=== PATIENT | female | born 1980 | race Hispanic/Latino ===

== ENCOUNTER 2018-08-22 13:19 | Emergency (ER) | payer OTHER ==
[2018-08-22 13:38] VITALS: BMI 25.7
[2018-08-22] MEDS ORDERED: Sodium Chloride 0.9% 1,000 ML IV ONE ×2 (14:28→14:53)
[2018-08-22 14:35] LABS: HEMOGLOBIN 13.4 g/dL (11.0-16.0); MEAN CELL VOLUME 88.8 fL (81.0-99.0); MEAN CORPUSCULAR HEMOGLOBIN 30.9 pg (27.0-31.0); MEAN CORPUSCULAR HGB CONC 34.8 g/dL (33.0-37.0); MEAN PLATELET VOLUME 7.9 fL (7.2-11.7); RBC 4.33 Mil/uL (3.80-5.20); RED CELL DISTRIBUTION WIDTH 14.2 % (11.5-14.5); WHITE BLOOD COUNT 7.2 K/uL (4.8-10.8)
[2018-08-22] MEDS ORDERED: Sodium Chloride 0.9% 1,000 ML ONE ×2 (14:39→15:03)
[2018-08-22 14:50] LABS: ALB/GLOB RATIO 1.3 (1.0-2.1); ALBUMIN 4.1 g/dL (3.5-5.0); ALT/SGPT 24 U/L (9-52); AST/SGOT 16 U/L (14-36); BLOOD UREA NITROGEN 9 mg/dL (7-17); GFR NON-AFRICAN AMERICAN > 60
--- NOTE | 2018-08-22 15:39 | C.PDOC ---
Time Seen by Provider: 08/22/18 14:04 Chief Complaint (Nursing): Abdominal Pain Past Medical History Vital Signs: Last Vital Signs Temp 98.6 F 08/22/18 13:38 Pulse 68 08/22/18 13:38 Resp 18 08/22/18 13:38 BP 170/91 H 08/22/18 13:38 Pulse Ox 99 08/22/18 13:38 - Medical History PMH: HTN Surgical History: Cholecystectomy - Social History Hx Alcohol Use: No Hx Substance Use: No - Immunization History Hx Tetanus Toxoid Vaccination: No Hx Influenza Vaccination: No Hx Pneumococcal Vaccination: No ED Course And Treatment - Laboratory Results Result Diagrams: 08/22/18 14:29 08/22/18 14:29 O2 Sat by Pulse Oximetry: 99 Disposition - Disposition Forms: [facility] (Slovak)
--- NOTE | 2018-08-22 15:39 | C.PDOC ---
History Of Present Illness 38 year old female, whose past medical history includes severe gastroparesis, presents to the ED for evaluation of frequent falls. Patient states she has been experiencing frequent falls over the past few days, and suspects it may be related to hypokalemia. Patient also repor/ts vomiting and abdominal pain, which she regularly experiences. Patient states her LMP was last week. She denies fever, chills, cough, chest pain, shortness of breath, recent travel. Time Seen by Provider: 08/22/18 14:04 Chief Complaint (Nursing): Abdominal Pain History Per: Patient History/Exam Limitations: no limitations Onset/Duration Of Symptoms: Days Current Symptoms Are (Timing): Still Present Past Medical History Reviewed: Historical Data, Nursing Documentation, Vital Signs Vital Signs: Last Vital Signs Temp 98.6 F 08/22/18 13:38 Pulse 68 08/22/18 13:38 Resp 18 08/22/18 13:38 BP 170/91 H 08/22/18 13:38 Pulse Ox 99 08/22/18 13:38 - Medical History PMH: HTN Surgical History: Cholecystectomy Family History: States: Unknown Family Hx - Social History Hx Alcohol Use: No Hx Substance Use: No - Immunization History Hx Tetanus Toxoid Vaccination: No Hx Influenza Vaccination: No Hx Pneumococcal Vaccination: No Review Of Systems Constitutional: Negative for: Fever, Chills Cardiovascular: Negative for: Chest Pain Respiratory: Negative for: Shortness of Breath Physical Exam - Physical Exam Appears: Non-toxic, No Acute Distress Skin: Normal Color, Warm, Dry Head: Atraumatic, Normacephalic Eye(s): bilateral: Normal Inspection Oral Mucosa: Moist Neck: Supple Chest: Symmetrical, No Deformity, No Tenderness Cardiovascular: Rhythm Regular, No Murmur Respiratory: Normal Breath Sounds, No Rales, No Rhonchi, No Wheezing Gastrointestinal/Abdominal: Soft, No Tenderness, No Guarding, No Rebound Extremity: Normal ROM, Capillary Refill (less than 2 seconds ) Neurological/Psych: Oriented x3, Normal Speech, Normal Cognition ED Course And Treatment - Laboratory Results Result Diagrams: 08/22/18 14:29 08/22/18 14:29 O2 Sat by Pulse Oximetry: 99 (on RA) Pulse Ox Interpretation: Normal Medical Decision Making Medical Decision Making: Plan: * bloodwork * IV Fluids, two liters * reassess and disposition Progress: Bloodwork ordered and reviewed. Patient's labwork is unremarkable Patient had already received one liter of IV flluids prior to my evaluation, and states her symptoms have started to improve. After receiving two liters of fluids, patient is resting comfortably, showing no signs of distress and reports an improvement in her symptoms. Patient states she regularly follows up with a video editing intern. She is advised to follow up within 1-2 days for further evaluation. Advised to return to the ED if symptoms persist or worsen. Disposition Counseled Patient/Family Regarding: Studies Performed, Diagnosis, Need For Followup - Disposition Disposition: HOME/ ROUTINE Disposition Time: 15:35 Condition: STABLE Instructions: Nausea and Vomiting, Adult (DC), Gastroparesis (Delayed Gastric Emptying) (DC) Forms: General Discharge Instructions, [facility] (Indian), Work Excuse - POA Present On Arrival: None - Clinical Impression Clinical Impression: Abdominal pain, Vomiting, Gastroparesis - Scribe Statement The provider has reviewed the documentation as recorded by the Scribe (Mariana Reynoso) Provider Attestation: All medical record entries made by the Scribe were at my direction and perso diya dictated by me. I have reviewed the chart and agree that the record accurately reflects my personal performance of the history, physical exam, medical decision making, and the department course for this patient. I have also personally directed, reviewed, and agree with the discharge instructions and disposition.
[2018-08-22 15:47] VITALS: BP 131/84; PULSE 57; RESP 16; TEMP 97.7
[2018-08-22 15:50] VITALS: O2SAT 99
== END 2018-08-22 15:46 | disposition home or self-care (01) ==
LOC: C.ER 13:19
DX: K31.84 Gastroparesis (principal); R11.10 Vomiting, unspecified; R10.9 Unspecified abdominal pain
CPT/HCPCS: 80053; 85027; 96360; 99284; J7030

== ENCOUNTER 2018-11-04 16:07 | Emergency (ER) | payer OTHER ==
[2018-11-04 16:08] VITALS: BMI 25.7
[2018-11-04 17:59] LABS: BASO # 0.1 K/uL (0.0-0.2); BASO % 0.7 % (0.0-2.0); EOS # 0.1 K/uL (0.0-0.7); EOS % 0.9 % (0.0-4.0); HEMOGLOBIN 14.4 g/dL (11.0-16.0); LYMPH # 2.9 K/uL (1.0-4.3); LYMPH % 38.2 % (20.0-40.0); MEAN CELL VOLUME 90.8 fL (81.0-99.0); MEAN CORPUSCULAR HEMOGLOBIN 31.2 pg (27.0-31.0); MEAN CORPUSCULAR HGB CONC 34.3 g/dL (33.0-37.0); MEAN PLATELET VOLUME 8.7 fL (7.2-11.7); MONO # 0.5 K/uL (0.0-0.8); NEUT # 4.1 K/uL (1.8-7.0); NEUT % 54.2 % (50.0-75.0); NRBC % 0.1 % (0.0-2.0); RBC 4.62 Mil/uL (3.80-5.20); RED CELL DISTRIBUTION WIDTH 13.4 % (11.5-14.5); WHITE BLOOD COUNT 7.5 K/uL (4.8-10.8)
[2018-11-04 18:14] LABS: ALB/GLOB RATIO 1.4 (1.0-2.1); ALBUMIN 4.5 g/dL (3.5-5.0); ALT/SGPT 21 U/L (9-52); AMYLASE 116 U/L (30-110); AST/SGOT 21 U/L (14-36); BLOOD UREA NITROGEN 11 mg/dL (7-17); CALCIUM 9.1 mg/dl (8.6-10.4); GFR NON-AFRICAN AMERICAN > 60; LIPASE 87 U/L (23-300)
[2018-11-04 18:20] LABS: HCG,QUALITATIVE URINE NEGATIVE (NEGATIVE)
[2018-11-04 18:34] LABS: SQUAMOUS EPITHIAL 14 /hpf (0-5); URINE BACTERIA RARE (<OCC); URINE BILIRUBIN NEGATIVE (NEGATIVE); URINE BLOOD NEGATIVE (NEGATIVE); URINE CLARITY Hazy (Clear); URINE COLOR Yellow (YELLOW); URINE GLUCOSE (UA) NORMAL (Normal); URINE LEUKOCYTE ESTERASE TRACE Leu/uL (Negative); URINE PROTEIN NEGATIVE (NEGATIVE); URINE UROBILINOGEN NORMAL mg/dL (0.2-1.0)
[2018-11-04] MEDS ORDERED: Sodium Chloride 0.9% 1,000 ML IV ONE (18:34)
[2018-11-04] MEDS ORDERED: Sodium Chloride 0.9% 1,000 ML ONE (18:48)
--- NOTE | 2018-11-04 18:55 | C.PDOC ---
History Of Present Illness Patient is a 38 year old female, with a PMHx of gastroparesis, who presents to the ED c/o increased nausea, vomiting, and diarrhea. Patient states that she feels dehydrated, has gastric reflux, and has a frontal headache after she vo mits. She states that she normally experiences nausea and vomiting, which is controlled by her medications. Patient states that 2 weeks ago, her PMD prescribed her doxycycline for lyme disease, which has increased her nausea, vomiting, and diarrhea. Last time she vomited was 4pm today and experienced diarrhea 2 days ago. Her LMP was one week ago and has an allergy to morphine. Patient denies CP, SOB, dizziness, syncopy, fever, cough, chills, or urinary symptoms. Time Seen by Provider: 11/04/18 18:08 Chief Complaint (Nursing): Abdominal Pain History Per: Patient History/Exam Limitations: no limitations Current Symptoms Are (Timing): Still Present Associated Symptoms: Nausea, Vomiting, Diarrhea. denies: Fever, Chills, Urinary Symptoms, Other (CP, SOB, syncopy, dizziness, cough) Recent travel outside of the [place]: No Additional History Per: Patient Past Medical History Reviewed: Historical Data, Nursing Documentation, Vital Signs Vital Signs: Last Vital Signs Temp 97.3 F L 11/04/18 16:12 Pulse 55 L 11/04/18 16:12 Resp 20 11/04/18 16:12 BP 152/97 H 11/04/18 16:12 Pulse Ox 96 11/04/18 16:12 - Medical History PMH: HTN Surgical History: Cholecystectomy Family History: States: Unknown Family Hx - Social History Hx Alcohol Use: No Hx Substance Use: No - Immunization History Hx Tetanus Toxoid Vaccination: No Hx Influenza Vaccination: No Hx Pneumococcal Vaccination: No Review Of Systems Review Of Systems: ROS cannot be obtained secondary to pt's inabilty to answer questions. Constitutional: Negative for: Fever, Chills, Other (syncopy) Cardiovascular: Negative for: Chest Pain Respiratory: Negative for: Cough, Shortness of Breath Gastrointestinal: Positive for: Nausea, Vomiting, Diarrhea Genitourinary: Negative for: Dysuria, Frequency, Hematuria Neurological: Positive for: Headache (frontal). Negative for: Dizziness Physical Exam - Physical Exam Appears: Non-toxic, No Acute Distress Skin: Normal Color, Warm, Dry Head: Atraumatic, Normacephalic Oral Mucosa: Dry Neck: Normal ROM, Supple Chest: Symmetrical, No Deformity Cardiovascular: Rhythm Regular, No Murmur Respiratory: Normal Breath Sounds, No Rales, No Rhonchi, No Wheezing Gastrointestinal/Abdominal: Soft, No Tenderness, No Guarding, No Rebound Extremity: Normal ROM Neurological/Psych: Oriented x3, Normal Speech, Normal Cognition ED Course And Treatment - Laboratory Results Result Diagrams: 11/04/18 17:54 11/04/18 17:54 Lab Results: Total Bilirubin 0.5 mg/dL (0.2-1.3) 11/04/18 17:54 AST 21 U/L (14-36) 11/04/18 17:54 ALT 21 U/L (9-52) 11/04/18 17:54 Alkaline Phosphatase 96 U/L (38-126) 11/04/18 17:54 Total Protein 7.6 g/dL (6.3-8.3) 11/04/18 17:54 Albumin 4.5 g/dL (3.5-5.0) 11/04/18 17:54 Globulin 3.1 gm/dL (2.2-3.9) 11/04/18 17:54 Albumin/Globulin Ratio 1.4 (1.0-2.1) 11/04/18 17:54 Amylase 116 U/L (30-110) H 11/04/18 17:54 Lipase 87 U/L (23-300) 11/04/18 17:54 Urine Color Yellow (YELLOW) 11/04/18 17:54 Urine Clarity Hazy (Clear) 11/04/18 17:54 Urine pH 6.0 (5.0-8.0) 11/04/18 17:54 Ur Specific [place] 1.015 (1.003-1.030) 11/04/18 17:54 Urine Protein Negative mg/dL (NEGATIVE) 11/04/18 17:54 Urine Glucose (UA) Normal mg/dL (Normal) 11/04/18 17:54 Urine Ketones Negative mg/dL (NEGATIVE) 11/04/18 17:54 Urine Blood Negative (NEGATIVE) 11/04/18 17:54 Urine Nitrate Negative (NEGATIVE) 11/04/18 17:54 Urine Bilirubin Negative (NEGATIVE) 11/04/18 17:54 Urine Urobilinogen Normal mg/dL (0.2-1.0) 11/04/18 17:54 Ur Leukocyte Esterase Trace Yamil/uL (Negative) 11/04/18 17:54 Urine WBC (Auto) 2 /hpf (0-5) 11/04/18 17:54 Urine RBC (Auto) 1 /hpf (0-3) 11/04/18 17:54 Ur Squamous Epith Cells 14 /hpf (0-5) H 11/04/18 17:54 Urine Bacteria Rare (<OCC) 11/04/18 17:54 Urine HCG, Qual Negative (NEGATIVE) 11/04/18 17:54 Urine HCG, Qual Negative (NEGATIVE) 11/04/18 17:54 O2 Sat by Pulse Oximetry: 96 (on RA) Pulse Ox Interpretation: Normal Medical Decision Making Medical Decision Making: Plan: Bloodwork, Urinalysis ordered and reviewed. Pepcid 20mg IVP, Tylenol 975mg PO, Zofran 4mg IVP, and IV FLuids administered. 20:10 On Reassessment, patient feels better after IV Fluids and states that she wants to go home. Disposition Counseled Patient/Family Regarding: Studies Performed, Diagnosis, Need For Followup - Disposition Disposition: HOME/ ROUTINE Disposition Time: 20:18 Condition: IMPROVED Additional Instructions: BROOKE ARRIAGA, thank you for letting us take care of you today. Your provider was Yajaira Pandey MD and you were treated for STOMACH PAINS. The emergency medical care you received today was directed at your acute symptoms. If you were prescribed any medication, please fill it and take as directed. It may take several days for your symptoms to resolve. Return to the Emergency Department if your symptoms worsen, do not improve, or if you have any other problems. Please contact your doctor in 1-2 days for a follow up appointment. Bring any paperwork you were given at discharge with you along with any medications you are taking to your follow up visit. Our treatment cannot replace ongoing medical care by a primary care provider outside of the emergency department. Thank you for allowing the [facility] team to be part of your care today. If you had an X-Ray or CT scan: A Radiologist will review the ED reading if any change in treatment is needed we will contact you. If you had a blood, urine, or wound culture: It will take several days for the results, if any change in treatment is needed we will contact you. If you had an STI test: It will take 48 hours for the results. Please call after 1 week if you have not heard back. Instructions: Nausea and Vomiting, Adult (DC), Gastroparesis (Delayed Gastric Emptying) (DC) Forms: [facility] (Sinhala), General Discharge Instructions - POA Present On Arrival: None - Clinical Impression Clinical Impression: Nausea, Vomiting, Gastroparesis - Scribe Statement The provider has reviewed the documentation as recorded by the Juan Fraser All medical record entries made by the Juan were at my direction and personally dictated by me. I have reviewed the chart and agree that the record accurately reflects my personal performance of the history, physical exam, medical decision making, and the department course for this patient. I have also personally directed, reviewed, and agree with the discharge instructions and disposition.
[2018-11-04 19:01] VITALS: RESP 20
[2018-11-04 20:32] VITALS: BP 117/81; PULSE 45; TEMP 98.3; O2SAT 97
== END 2018-11-04 20:44 | disposition home or self-care (01) ==
LOC: C.ER 16:07
DX: K31.84 Gastroparesis (principal); R11.2 Nausea with vomiting, unspecified
CPT/HCPCS: 36415; 80053; 81001; 82150; 83690; 84703; 85025; 96361; 96374; 96375; 99285; J2405; J7030